=== PATIENT | male | born 1975 | race Caucasian/White ===

== ENCOUNTER 2021-10-25 16:37 | Outpatient (REF) | payer MEDICAID, SELFPAY ==
--- NOTE | ~2021-10-25 | XR_ITS ---
EXAMINATION: XR ABDOMEN KUB CLINICAL INDICATION: Lower abdominal pain. COMPARISON: None TECHNIQUE: 2 AP views of the abdomen and pelvis are submitted. FINDINGS: The bowel gas pattern is normal with no evidence of ileus or obstruction. No free intraperitoneal air is seen. No unusual soft tissue calcifications are noted. The bones are unremarkable. XR/XR KUB IMPRESSION: Unremarkable examination.
== END 2021-10-25 16:38 | disposition home or self-care (01) ==
LOC: HO.XRAY 16:37
PROVIDERS: PCP Nurse Practitioner Family; Visit Provider Nurse Practitioner Family
DX: R10.30 Lower abdominal pain, unspecified (principal)
CPT/HCPCS: 74018

== ENCOUNTER 2023-01-30 12:05 | Outpatient (REF) | payer MEDICAID, SELFPAY ==
[2023-01-30 13:17] LABS: MANUAL DIFF FLAG NO
[2023-01-30 13:42] LABS: Basophils Percent Auto 0.3 % (0-2); Eosinophils Absolute Auto 0.2 X10*3/uL (0.0-0.4); Eosinophils Percent Auto 2.4 % (0-4); Hematocrit 43.3 % (42.0-52.0); Hemoglobin 14.5 g/dl (14.0-18.0); Imm Gran Abs Auto 0.02 X10*3/uL (0.00-0.03); Imm Gran Pct Auto 0.2 % (0.0-0.4); Lymphocytes Absolute Auto 1.5 X10*3/uL (1.2-4.9); Lymphocytes Percent Auto 16.8 % (20-40); Mean Corpuscular HGB Conc 33.5 g/dl (31.0-36.0); Mean Corpuscular Hemoglobin 30.1 pg (27.0-33.0); Mean Corpuscular Volume 89.8 fL (80.0-98.0); Mean Platelet Volume 11.9 fL (9.4-12.4); Monocytes Absolute Auto 0.7 X10*3/uL (0.1-1.2); Monocytes Percent Auto 7.5 % (2-11); Neutrophils Absolute Auto 6.4 x10*3/uL (2.0-8.3); Neutrophils Percent Auto 72.8 % (45-73); Platelet Count 317 X10*3/uL (160-400); Red Blood Count 4.82 X10*6/uL (4.60-5.80); Red Cell Distribution Width 12.7 % (11.0-16.0); White Blood Count 8.8 X10*3/uL (4.8-10.8)
[2023-01-30 13:57] LABS: Estimated Average Glucose 105 mg/dL; Hemoglobin A1c % 5.3 %
[2023-01-30 14:44] LABS: Alanine Aminotransferase 29 U/L (0-40); Albumin Level 3.8 g/dL (3.5-5.0); Alkaline Phosphatase 60 U/L (39-117); Anion Gap 9 (12-20); Aspartate Amino Transferase 24 U/L (5-37); Bilirubin Total 0.4 mg/dL (0.0-1.0); Blood Urea Nitrogen 15 mg/dL (9-16); Calcium 8.7 mg/dL (8.4-10.2); Carbon Dioxide 27 mmol/L (22-29); Chloride 108 mmol/L (96-108); Cholesterol 143 mg/dL; Estimated Glomerular Filt Rate > 60; Glucose Random 91 mg/dL (60-115); HDL Cholesterol 38 mg/dL; LDL Cholesterol Calculated 93 mg/dl; Sodium 140 mmol/L (135-145); Total Protein 7.1 g/dL (6.5-8.0); Triglycerides 60 mg/dL
[2023-01-31 02:41] LABS: Creatinine Urine 174.89 mg/dL; Microalbum/Creatinine Ratio Ur 5.1 ug/mg cr
[2023-01-31 04:29] LABS: Syphilis Screen Nonreactive (Nonreactive)
[2023-01-31 05:05] LABS: ~HepC Num1 0.24 S/CO (0.00-0.79); ~Hepatitis C Antibody Nonreactive (Nonreactive)
[2023-01-31 05:06] LABS: HBS Num1 0.43 mIU/mL (0-7.99); HBc Num1 0.08 S/CO (0.00-0.79); HBsAGNum1 0.35 S/CO (0.00-0.99); HIV AB/AG Nonreactive (Nonreactive); HIV Num 1 0.06 S/CO (0.00-0.99); Hepatitis B Core Antibody Nonreactive (Nonreactive); Hepatitis B Surface Antigen Negative (Negative); ~Hepatitis B Surface Antibody NONREACTIVE (Nonreactive)
== END 2023-01-30 12:06 | disposition home or self-care (01) ==
LOC: HO.HHCL 12:05
PROVIDERS: Visit Provider Student in an Organized Health Care Education/Training Program
DX: Z00.00 Encounter for general adult medical examination without abnormal findings (principal); Z11.4 Encounter for screening for human immunodeficiency virus [HIV]
CPT/HCPCS: 36415; 80053; 80061; 82043; 83036; 85025; 86704; 86706; 86780; 86803; 87340; 87389

== ENCOUNTER 2025-05-13 03:43 | Emergency (ER) | payer MEDICAID, SELFPAY ==
[2025-05-13 03:46] VITALS: BP 153/87; PULSE 91; RESP 20; TEMP 36.8; O2SAT 97; BMI 45.6
[2025-05-13 03:57] VITALS: BP 151/88; PULSE 86; RESP 20; TEMP 36.8; O2SAT 94
[2025-05-13 04:13] LABS: Hematocrit 40.3 % (42.0-52.0); Hemoglobin 13.8 g/dl (14.0-18.0); Imm Gran Abs Auto 0.02 X10*3/uL (0.00-0.03); Imm Gran Pct Auto 0.2 % (0.0-0.4); Lymphocytes Absolute Auto 1.8 X10*3/uL (1.2-4.9); MANUAL DIFF FLAG NO; Mean Corpuscular HGB Conc 34.2 g/dl (31.0-36.0); Mean Corpuscular Hemoglobin 30.4 pg (27.0-33.0); Mean Corpuscular Volume 88.8 fL (80.0-98.0); NRBC Abs Auto 0.000 X10*3/uL (0.0-0.012); NRBC Pct Auto 0.0 /100WBC (0.0-0.2); Platelet Count 299 X10*3/uL (160-400); Red Blood Count 4.54 X10*6/uL (4.60-5.80); White Blood Count 9.7 X10*3/uL (4.8-10.8)
[2025-05-13 04:26] LABS: Alanine Aminotransferase 26 U/L (0-40); Albumin Level 4.0 g/dL (3.5-5.0); Alkaline Phosphatase 70 U/L (39-117); Anion Gap 13 (12-20); Aspartate Amino Transferase 27 U/L (5-37); Blood Urea Nitrogen 18 mg/dL (9-16); Calcium 8.8 mg/dL (8.4-10.2); Carbon Dioxide 25 mmol/L (22-29); Chloride 111 mmol/L (96-108); Creatinine Clr Calc Pharmacy 124.3; Estimated Glomerular Filt Rate > 60; Potassium 3.6 mmol/L (3.3-5.1); Sodium 145 mmol/L (135-145); Total Protein 6.7 g/dL (6.5-8.0)
--- OUTSIDE RECORDS SUMMARY | 2025-05-13 04:41 | XMS_ITS | Clinical Summary ---
Author Organization [employer] Address [address] [place] [address] Care Team Providers Care What Job Titles Mean Name Role Phone Carly Avery MD Primary Care Pro vider Allergies No known active allergies Medications * This document contains information received from the source organization and may not represent a complete record from that organization. meclizine (Antivert) 25 MG tablet take 1 tablet by oral route 3 times every day as needed for dizzy symptoms 30 tablet 2 3 Active lisinopril 10 MG tablet Take 1 tablet (10 mg) by mouth in the morning. 30 tablet 2 3 Active albuterol 108 (90 Base) MCG/ACT inhaler inhale 2 puff by inhalation route every 4 - 6 hours as needed 18 g 2 3 Active Blood Pressure kit 1 Device in the morning. 1 kit 3 Active Active Problems Problem Noted Date Diagnosed Date Vertigo 01/30/2023 Current moderate episode of major depressive disorder without prior episode (CMS/HCC) 01/30/2023 Assessment & Plan (02/07/2023 4:28 PM EDT): Assessment: Patient with depressive symptoms (worthless feelings, problem concentrating, significant weight gained). Patient reported sleep disturbance and complaint of fatigue. Symptoms occur more than half the days and have been present for the last six months in the context of living situation. He's currently living with his parents. Patient will benefit from receiving OP individual therapy to decrease depressive symptoms. At this time Shakir Hamilton meets criteria for Visit Diagnoses: Problem List Items Addressed This Visit Other Current moderate episode of major depressive disorder without prior episode (CMS/HCC) Patient ready to address current needs Yes Strengths include Family relationships and support. PLAN: 1. Follow up with [facility]: No 2. Patient goal is to feel less depressed and lose weight 3. Behavioral Recommendations: - OP individual therapy - Practice grounding exercises Hypertension 01/30/2023 Health care maintenance 01/30/2023 Morbid obesity (CMS/HCC) 10/18/2018 Resolved Problems Problem Noted Date Diagnosed Date Resolved Date Hypertensive disorder 08/28/20202022 Encounters Date Type Department Care Team Description 05/02/2025 Telephone [facility] [address] [place] [address] Carly Avery MD Nurse Triage from Last 3 Months Immunizations Immunization Administration Dates Next Due Influenza injectable quadriv alent IIV4 with preservative 04/15/2015 Influenza injectable quadrivalent preservative f ree 07/31/2020 Pfizer Covid-19 Vaccine 12+ Bivalent 01/30/2023 Tdap 04/15/2015 Family History Medical History Relation Name Comments DM2 Mother unspecified heart diseae Mother Relation Name Status Comments Mother Social History Tobacco Use Types Packs/Day Years Used Date Smoking Tobacco: Never Smokeless Tobacco: Never Alcohol Use Standard Drinks/Week Comments Yes 0 (1 standard drink = 0.6 oz pur e alcohol) social Depression Answer Date Recorded Patient Health Questionnaire-9 Score 16 01/30/2023 Housing Stability Answer Date Recorded What is your housing situation today? I have benji nash 04/03/[address] you li ve. Do you have problems with any of the following? None of the above 04/03/2023 Food Insecurity Answer Date Recorded Within the past 12 months, y ou worried that your food would run out before you got money to buy more: Never True 04/03/2023 Within the past 12 months,th e food you bought just didn't last and you didn't have enough money to get more: Never True Transportation Answer Date Recorded In the past 12 months, has l ack of transportation kept you from medical appts, meetings, work or from getting things needed for daily living? No 04/03/2023 Utilities Answer Date Recorded In the past 12 months, has t he electric, gas, oil or water company threatened to shut off services in your home? No 04/03/2023 Depression Answer Date Recorded Patient Health Questionnaire-2 Score 4 01/30/2023 Sex and Gender Information Value Date Recorded Sex Assigned at Male 04/18/2022 10:15 AM EDT Legal Sex Male 10:15 AM EDT Gender Identity Male 01/30/2023 10:35 AM EDT Sexual Orientation Straight 01/30/2023 10 :35 AM EDT Last Filed Vital Signs Vital Sign Reading Time Taken Comments Blood Pressure 149/102 01/30/2023 10:00 AM EDT Pulse 69 01/30/2023 10:00 AM EDT Temperature 36.4 C (97.5 F) 01/30/2023 10:00 AM EDT Respiratory Rate 18 01/30/2023 10:00 AM EDT Oxygen Saturation 98% 01/30/2023 10:00 AM EDT Inhaled Oxygen Concentration - - Weight 144 kg (318 lb 6.4 oz) 01/30/2023 10:00 A M EDT Height 167.6 cm (5' 6 ) 01/30/2023 10:00 AM EDT Body Mass Index 51.39 01/30/2023 10:00 AM EDT Plan of Treatment Health Maintenance Due Date Last Done Comments CT Colonography 1974 Colonoscopy 1974 Colorectal Cancer Screening 1974 FIT DNA/Cologuard 1974 FIT 1974 FOBT 1974 Sigmoidoscopy 1974 Disability Screening 1974 Alcohol/Substance Use Screening 1986 Family Planning (PISQ) 1989 Hepatitis B Vaccines (1 of 3 - 19+ 3-dose series) 1993 Depression Monitoring 08/02/2023 01/30/2023 , 01/30/2023 SDOH Screening 01/31/2024 01/30/2023 Tobacco Screening 01/31/2024 01/30/2023 Pneumococcal Vaccine: 50+ Years (1 of 1 - PCV) 2024 RSV Patients and Patients Aged 60 years or older (1 - Risk 50-74 years 1-dose series) 2024 Zoster Vaccines (1 of 2) 2024 COVID-19 Vaccine (2 - 2024-2 6 season) 2025 01/30/2023 Influenza Vaccine (#1) 2025 , 04/15/2015 DTaP/Tdap/Td Vaccines (2 - T d or Tdap) 04/15/2025 04/15/2015 Lipid Panel 01/31/2028 01/30/2023, 07/31/2020 HIV Screening Completed 01/30/2023, 07/31/2020 Hepatitis C Screening Completed 01/30/2023 , 07/31/2020 HIB Vaccines Aged Out No longer eligi ble based on patient's age to complete this topic HPV Vaccines Aged Out No longer eligi ble based on patient's age to complete this topic Hepatitis A Vaccines Aged Out No long er eligible based on patient's age to complete this topic IPV Vaccines Aged Out No longer eligi ble based on patient's age to complete this topic Meningococcal B Vaccine Aged Out No l onger eligible based on patient's age to complete this topic Meningococcal Vaccine Aged Out No faisal lorrie eligible based on patient's age to complete this topic RSV under 20 months Aged Out No longe r eligible based on patient's age to complete this topic Rotavirus Vaccines Aged Out No longer eligible based on patient's age to complete this topic Procedures Procedure Name Priority Date/Time Associated Diagnosis Comments HEPATITIS C ANTIBODY REFLEX Routine 01/30/2023 12:13 PM EDT HIV ANTIBODY/ANTIGEN ([place] [facility]) Routine 01/30/2023 12:13 PM EDT LIPID PANEL, STANDARD Routine 01/30/2023 12:13 PM EDT Health care maintenance from Last 3 Months or Most Recently Relevant to Health Maintenance Results * Hepatitis C Antibody Reflex (01/30/2023 12:13 PM EDT) Hepatitis C Antibody Nonreactive Nonreactive [facility] Comment:Antibodies to HCV no t detected; does not exclude early acuteHCV infection. 01/30/2023 12:1 3 PM EDT 01/30/2023 1:14 PM EDT us Carly Coreas MD LAB BLOOD ORDERAB LES Final Result Performing Organization Address City/[facility]/ZIP Co de Phone Number [facility] [address] [place] [address] [phone] * HIV Ab/Ag (NISHA KILPATRICK) (01/30/2023 12:13 PM EDT) HIV AB/AG Nonreactive Nonreactive [facility] Comment:HIV-1 p24 Ag and/or HIV-1/HIV-2 Ab not detected.A test result that is nonreactive does not exclude thepossibility of exposure to or infection with HIV-1 and/orHIV-2. Nonreactive results in this assay for individualswith prior exposure to HIV-1 and/or HIV-2 may be due toantigen and antibody levels that are below the limit ofdetection of this assay.The [facility] HIV Ag/Ab Combo assay result andsupplemental assay results should be interpreted inconjunction with the patient's clinical presentation,history and other laboratory results. If the results areinconsistent with clinical evidence, additional testing issuggested to confirm the result. 01/30/2023 12:1 3 PM EDT 01/30/2023 1:14 PM EDT us Carly Coreas MD LAB BLOOD ORDERAB LES Final Result Performing Organization Address [facility]/ZIP Co de Phone Number [facility] [address] [place] [address] [phone] * Lipid Panel, Standard (01/30/2023 12:13 PM EDT) Triglycerides 60 mg/dL [facility] Comment:Desirable Triglyceri de: less than 150 mg/dLBorderline High Triglyceride 150-199 mg/dLHigh Triglyceride: 200-499 mg/dLVery High Triglyceride: greater than or equal to 5OO mg/dL Cholesterol 143 mg/dL [facility] Comment:Desirable Cholestero l: less than 200 mg/dLBorderline High Cholesterol: 200-239 mg/dLHigh Cholesterol: greater than 239 mg/dL LDL Cholesterol Calculated 93 mg/dl [facility] Comment:Desirable LDL: less than 100 mg/dLNear Optimal/Above Optimal LDL: 110- 129 mg/dLBorderline High LDL: 130-159 mg/dLHigh LDL: 160-189 mg/dLVery High LDL: greater than or equal to 190 mg/dL HDL Cholesterol 38 mg/dL [facility] Comment:Desirable HDL: great er than 40 mg/dL Note: This HDL assay may give artificially low results in patients with liver disease. Blood Venous blood specimen / Unknown 01/30/2023 12:13 PM EDT 01/30/2023 1:14 PM EDT Carly Coreas MD LAB BLOOD ORDERAB LES Final Result [facility] [address] [place] [address] [phone] from Last 3 Months or Most Recently Relevant to Health Maintenance Insurance [employer] C3 Care Teams What Job Titles Mean Relationship Specialty Start Date End Date Carly Avery MD [address] [place] [phone] PCP - General Internal Medicine 11/18/22
--- NOTE | 2025-05-13 05:09 | ED_ITS ---
HPI - General Adult General Chief complaint: Skin/Abscess/Foreign Body Stated complaint: rash Time Seen by Provider: 05/13/25 04:48 Source: patient and family Limitations: language barrier History of Present Illness ED Provider: Brigid Lemus PA-C HPI narrative: 49-year-old male presents with facial rash times 3 days. Patient states he was visiting a family member, he woke the next morning with an itchy rash over his face, with the associated swelling. The swelling has subsided, however the pruritus has persisted. Patient states his skin has become discolored it is darker than his normal tone. Denies having psoriasis or eczema. No new food, no new medication. Denies angioedema or swelling of the tongue. No dysphagia or dyspnea, no wheezing. Related Data Previous Rx's ?Medication ?Instructions ?Recorded hydroxyzine HCl 50 mg tablet 50 mg PO TID PRN itching #10 tabs 05/13/25 prednisone 20 mg tablet 40 mg (2 x 20 mg) PO DAILY # 8 tabs 05/13/25 Allergies Allergy/AdvReac Type Severity Reaction Status Date / Time No Known Allergies Allergy Verified 05/13/25 03:48 Review of Systems 2 Review of Systems: Yes all other systems are reviewed and are negative Constitutional: Constitutional: Denies fatigue and Denies fever(s) ENT: Denies facial pain, Denies sore throat, Denies throat swelling and Denies tongue swelling Cardiovascular: Cardiovascular: Denies chest pain and Denies dyspnea Respiratory: Respiratory: Denies dyspnea, Denies stridor and Denies wheezing Integumentary/Breasts: Skin/Breast: Reports change in pigmentation, Reports pruritus, Reports erythema and Reports skin swelling Endocrine: Endocrine: Denies fatigue Allergic/Immunologic: Allergic/Immunologic: Denies throat swelling, Denies tongue swelling and Denies wheezing PMFSH Past Medical History Attestation statement: The following information was validated with the patient. Social History Social History Smoked in Last 30 Days: Yes Advance Directives: No Advance Directives Information Provided: Yes Physical Exam ED Vital Signs: Vital Signs - 24 hr 05/13/25 03:46 05/13/25 03:57 05/13/25 05:25 Temperature 98.3 F 98.2 F 98.1 F Pulse Rate 91 86 77 Respiratory Rate 20 20 19 Blood Pressure 153/87 H 151/88 H 148/78 H Pulse Oximetry 97 94 97 Oxygen Delivery Method Room Air Room Air Room Air BMI result Body Mass Index 45.6 Const Other: Alert, Orientation/consciousness: patient oriented x3 HENMT Other: no angioedema, no swelling of the tongue Resp Effort & Inspection: normal respiratory effort Cardio Other: normal peripheral perfusion Skin Other: the skin of the face is hyperpigmented, thickened and subtly swollen, underlying erythema, the skin is pruritic. There are no discrete lesions, the thickness and swelling of the skin is confluent, appears consistent with potential eczema Neuro General: patient oriented x3, gait normal, no focal motor deficits and CN's II- XI intact bilaterally Psych Other: cooperative Medications Administered Discontinued Medications Generic Name Dose Route Start Last Admin Trade Name Freq PRN Reason Stop Dose Admin Hydroxyzine HCl 50 mg 05/13/25 05:07 05/13/25 05:15 Hydroxyzine Hcl 50 Mg Tablet PO 05/13/25 05:08 50 mg ONCE ONE Administration Prednisone 40 mg 05/13/25 05:07 05/13/25 05:15 Prednisone 20 Mg Tablet PO 05/13/25 05:08 40 mg ONCE ONE Administration Medical Decision Making Medical Decision Making [facility] Narrative: 49-year-old male presents with facial rash times 3 days. Patient states he was visiting a family member, he woke the next morning with an itchy rash over his face, with the associated swelling. The swelling has subsided, however the pruritus has persisted. Patient states his skin has become discolored it is darker than his normal tone. Denies having psoriasis or eczema. No new food, no new medication. Denies angioedema or swelling of the tongue. No dysphagia or dyspnea, no wheezing. no known underlying chronic issues History: Per patient I have considered the following differential diagnoses: Eczema, psoriasis, contact dermatitis, urticaria, angioedema, allergic reaction , Malar rash from lupus Plan: the patient is rash seems consistent with a eczema, he likely came in contact with something irritating while visiting a family member. This is not urticaria, there was also no evidence of angioedema on exam. We will treat with steroid, hydroxyzine and topical Aveeno product. Giving him the contact for a local director bioinformatics. screening labs were obtained from triage I have independently reviewed the following tests: Labs: No leukocytosis, not anemic, no electrolyte abnormality noted Differential Diagnosis Differential Diagnoses: The differential diagnosis associated with the presentation includes see [facility] Admission/Observation Consideration of admission/observation: Escalation of care including admission/observation considered not applicable Lab Data [facility] Lab Attestation statement: I reviewed the patient's lab results. 05/13/25 04:09 05/13/25 04:09 Labs: Lab Results 05/13/25 Range/Units 04:09 WBC 9.7 (4.8-10.8) X10*3/uL RBC 4.54 L (4.60-5.80) X10*6/uL Hgb 13.8 L (14.0-18.0) g/dl Hct 40.3 L (42.0-52.0) % MCV 88.8 (80.0-98.0) fL MCH 30.4 (27.0-33.0) pg MCHC 34.2 (31.0-36.0) g/dl RDW 12.4 (11.0-16.0) % Plt Count 299 (160-400) X10*3/uL MPV 10.8 (9.4-12.4) fL Immature Gran % (Auto) 0.2 (0.0-0.4) % Neut % (Auto) 71.1 (45-73) % Lymph % (Auto) 18.1 L (20-40) % Eddy % (Auto) 7.1 (2-11) % Eos % (Auto) 3.0 (0-4) % Baso % (Auto) 0.5 (0-2) % Lymph # (Auto) 1.8 (1.2-4.9) X10*3/uL Eddy # (Auto) 0.7 (0.1-1.2) X10*3/uL Eos # (Auto) 0.3 (0.0-0.4) X10*3/uL Baso # (Auto) 0.1 (0.0-0.2) X10*3/uL Abs Immat Gran (auto) 0.02 (0.00-0.03) X10*3/uL Absolute Neuts (auto) 6.9 (2.0-8.3) x10*3/uL Absolute Nucleated RBC 0.000 (0.0-0.012) X10*3/uL Nucleated RBC % (auto) 0.0 (0.0-0.2) /100WBC Sodium 145 (135-145) mmol/L Potassium 3.6 (3.3-5.1) mmol/L Chloride 111 H (96-108) mmol/L Carbon Dioxide 25 (22-29) mmol/L Anion Gap 13 (12-20) BUN 18 H (9-16) mg/dL Creatinine 0.96 (0.5-1.4) mg/dL Estim Creat Clear Calc 124.3 Estimated GFR > 60 Random Glucose 117 H (60-115) mg/dL Calcium 8.8 (8.4-10.2) mg/dL Total Bilirubin 0.2 (0.0-1.0) mg/dL AST 27 (5-37) U/L ALT 26 (0-40) U/L Alkaline Phosphatase 70 (39-117) U/L Total Protein 6.7 (6.5-8.0) g/dL Albumin 4.0 (3.5-5.0) g/dL Discharge Plan Discharge Clinical Impression: Eczema Patient Disposition: Home, Self-Care Instructions: Dermatitis (ED) Additional Instructions: The rash on your face resembles eczema. See home care instructions. Take the steroid as directed, take it in the morning, you received your 1st dose here in the emergency room, do not take any additional steroid until tomorrow. Use the hydroxyzine for itching. Purchase an [id number] Aveeno face lotion that has specific for eczema, you can purchase this remedy at any pharmacy. You should follow up with the director bioinformatics, I am providing you with a contact, call today to schedule an appointment. [facility] [address] [place] [address] Prescriptions: New prednisone 20 mg tablet 40 mg PO DAILY Qty: 8 0RF hydroxyzine HCl 50 mg tablet 50 mg PO TID PRN (Reason: itching) Qty: 10 0RF Interventions: ED Discharge Assessment Last Done: 05/13/25 05:25 Discharge Date/Time: 05/13/25 05:26 Print Language: Haitian
[2025-05-13 05:25] VITALS: BP 148/78; PULSE 77; RESP 19; TEMP 36.7; O2SAT 97
== END 2025-05-13 05:26 | disposition home or self-care (01) ==
PROVIDERS: Emergency Provider Emergency Medicine
DX: L30.9 Dermatitis, unspecified (principal); R21 Rash and other nonspecific skin eruption
CPT/HCPCS: 36415; 80053; 85025; 99283; 99284